=== PATIENT | female | born 1995 | race Caucasian/White ===

== ENCOUNTER 2017-05-15 05:48 | Emergency (ER) | END 2017-05-15 07:43 | disposition home or self-care (01) ==

== ENCOUNTER 2018-02-10 08:16 | Emergency (ER) | END 2018-02-10 10:37 | disposition home or self-care (01) ==

== ENCOUNTER 2018-07-07 00:34 | Outpatient (CLI) | payer BC ==
[~2018-07-07] VITALS: Ht 160 cm; Wt 67.9 kg
[~2018-07-07 00:34] MED LIST: ACET325T33 PO; ACET500C5 PO; CIPR500T4 PO; DICY10CA40 PO; ELEC100080 PO; FOLI20CA PO; PREN1TAB62 PO
[2018-07-07 01:28] VITALS: Ht 160 cm; Wt 67.9 kg
[2018-07-07 01:29] VITALS: BP 107/59; PULSE 74; RESP 18
--- NOTE | 2018-07-07 01:57 | PREOPHP ---
DATE OF ADMISSION: 07/07/2018 HISTORY OF PRESENT ILLNESS: Ms. Darby Calhoun is a 23-year-old 2, para 1, EDC of 09/14 intrauterine at 30 weeks and 1 day gestational age, presented to triage complaining o f lower abdominal pain/pressure radiating to her external genitalia. She denies any headache, nausea , vomiting, shortness of breath or visual changes. Her care is currently with Dr. Zhou . PAST MEDICAL HISTORY: None. MEDICATIONS: vitamins. PAST SURGICAL HISTORY: None. OBSTETRICAL HISTORY: x1 vaginal delivery. GYNECOLOGIC HISTORY: 12, regular 3 to 4 days. Denies any sexually transmitted disease. Sexually ac tive with 1 partner. SOCIAL HISTORY: Denies any smoking, drugs or alcohol. FAMILY HISTORY: None. REVIEW OF SYSTEMS: All within normal except history of present illness. PHYSICAL EXAMINATION: HEENT: Within normal. LUNGS: CTA bilateral. CARDIOVASCULAR: S1, S2. Regular rate, rhythm. ABDOMEN: Gravid, nontender. Negative CVA bilateral. EXTREMITIES: Negative. No calf tenderness. PELVIC: Vaginal: Normal external genitalia. Digital exam deferred. heart tracing category 1 . Tocometer: No contractions. IMPRESSION: Intrauterine at 30 weeks and 1 day gestational age with lower abdominal pain/p ressure, suspected round ligament pain. PLAN: Plan is a biophysical profile, EFW, cervical length, fibronectin. Consider discharge ho me if stable. Dictated By: MEGAN BAUTISTA/NTS Conf#: [id number] DID#: [id number]
--- NOTE | 2018-07-07 03:57 | TRIAGE ---
OB Triage Datetime Report Generated by CPN: 07/07/2018 03:57 Datetime: 07/07/2018 02:52 Pain Assessment Pain Scale: 0 Pain Presence: None/Denies Pain Type: N/A Pain Assessment Comments: Pt able to sleep. Datetime: 07/07/2018 01:13 Time of Arrival: 07/07/2018 00:30 EGA: 30.1 Arrived By: Wheelchair Arrived From: Home Chief Complaint: Abdominal pain/pressure Movement: Present Contractions: Denies/Absent Rupture of Membranes: Denies Vaginal Bleeding: None Vaginal Discharge: Denies Recent Sexual Intercouse: Denies Abdominal Trauma: Not Applicable Patient Complaints: Other Time Provider Notified: 07/07/2018 01:38 Provider Notified: Dr. Edouard Initial Plan: CEFM Datetime: 07/07/2018 01:08 Stage of : OB Triage Assessment Type: Triage Maternal Assessment Level of Consciousness: Fully Conscious DTR's/Clonus: DTRs 2+; No Clonus Headache: Denies Blurred Vision: No Respiratory Effort: Unlabored; Regular Rhythm; Equal Expansion Breath Sounds, Left: Clear and Equal Breath Sounds, Right: Clear and Equal Nausea/Vomiting: Denies RUQ Epigastric Pain: Denies Lower Extremities Edema: None Degree: None Upper Extremities Edema: None Degree: None Facial Edema: None Temperature Route: Oral Fall Risk Assessment History of Falling: (0) No Secondary Diagnosis: (0) No Ambulatory Aid: (0) Bedrest/Nurse Assist IV Therapy: (0) No Gait: (0) Normal/Bedrest/Immobile Mental Status: (0) Oriented to Own Ability Fall Score: 0 Fall Risk Score Definition: No Risk: No action required Pain Assessment Pain Scale: 6 Pain Presence: Constant Pain Type: Pressure Pain Location: Abdomen
== END 2018-07-07 03:50 | disposition home or self-care (01) ==
LOC: OBT 00:34 → L-D 00:34 → OBT 03:50
PROVIDERS: ATTEND Obstetrics & Gynecology
DX: O26.893 Other specified pregnancy related conditions, third trimester (principal); Z3A.30 30 weeks gestation of pregnancy; R10.30 Lower abdominal pain, unspecified
CPT/HCPCS: 76817; 76818; 81001; 82731; Z7500; 81003; G0463

== ENCOUNTER 2018-08-29 18:16 | Outpatient (CLI) | payer BC ==
[~2018-08-29] VITALS: Ht 160 cm; Wt 72.1 kg
[~2018-08-29 18:16] MED LIST changes: -ACET325T33 PO; -ACET500C5 PO; -CIPR500T4 PO; -DICY10CA40 PO; -ELEC100080 PO
[2018-08-29 18:30] VITALS: BP 120/58; PULSE 85; RESP 19; Ht 160 cm; Wt 72.1 kg
[2018-08-29] MEDS ORDERED: LACTATED RINGER'S 1,000 ML IV ONE (21:30)
[2018-08-29] MEDS ORDERED: CEFTRIAXONE 1 GM/50 ML (PMX) 50 ML IVPB ONE (22:00)
[2018-08-29] MEDS ORDERED: SOD CHLORIDE 0.9% 1,000 ML IV SCH (22:30)
--- NOTE | 2018-08-29 23:53 | PN ---
Triage Information Date/Time 347 Reason for visit: Abd/pelvic pain Weeks of Gestation 38w6d /Para Diabetes: none Hypertention: none Additional information blood in the urine Objective Vital Signs Date Temp Pulse Resp B/P (MAP) Pulse Ox O2 O2 Flow FiO2 Time Delivery Rate 08/29/18 98.1 85 19 120/58 Room Air 18:30 (78) Heart Rate: 140's Contractions: >10 Minutes Apart Exam cl/long/igh Results/Medications Results 24 hrs Laboratory Tests Test 08/29/18 18:25 Urine Color YELLOW Urine Clarity SLIGHTLY CLOUDY A Urine pH 6.0 Urine Specific [place] 1.015 Urine Ketones TRACE A Urine Nitrite NEGATIVE Urine Bilirubin NEGATIVE Urine Urobilinogen NEGATIVE Urine Leukocyte Esterase 1+ H Urine Microscopic RBC 1 Urine Microscopic WBC 10 H Urine Squamous Epithelial Cells MODERATE Urine Bacteria FEW A Urine Hemoglobin NEGATIVE Urine Glucose 3+ H Urine Total Protein NEGATIVE Medications Current Medications Sodium Chloride 1,000 ml @ 125 mls/hr Q8H IV Last administered on 08/29/18at 22:33; Admin Dose 125 MLS/HR; Start 08/29/18 at 22:30 Imaging Results BPP 8 DELISA 12 Disposition: Discharge Assessment/Plan A IUP 38w6d pelvic pain UTI P discharge home with cephalexin JENNIFER CONTE MD Aug 29, 2018 23:52
--- NOTE | 2018-08-30 05:42 | TRIAGE ---
OB Triage Datetime Report Generated by CPN: 08/30/2018 05:42 Datetime: 08/29/2018 22:58 Monitor Mode: External Monitor Mode: External US Datetime: 08/29/2018 22:31 Monitor Mode: External Monitor Mode: External US Datetime: 08/29/2018 22:02 Monitor Mode: External Datetime: 08/29/2018 21:57 Vaginal Exam Dilatation (cms): 0.0 Effacement (%): 0 Station: -3 Exam By: azy k RN Membrane Status: Intact Datetime: 08/29/2018 19:23 Stage of : OB Triage Assessment Type: Triage Maternal Assessment Level of Consciousness: Fully Conscious DTR's/Clonus: DTRs 2+; No Clonus Headache: Denies Blurred Vision: No Respiratory Effort: Unlabored; Regular Rhythm; Equal Expansion Breath Sounds, Left: Clear and Equal Breath Sounds, Right: Clear and Equal Nausea/Vomiting: Denies RUQ Epigastric Pain: Denies Facial Edema: None Temperature Route: Oral Fall Risk Assessment History of Falling: (0) No Secondary Diagnosis: (0) No Ambulatory Aid: (0) Bedrest/Nurse Assist IV Therapy: (0) No Gait: (0) Normal/Bedrest/Immobile Mental Status: (0) Oriented to Own Ability Fall Score: 0 Fall Risk Score Definition: No Risk: No action required Pain Assessment Pain Scale: 7 Pain Presence: Constant Pain Type: Ache Pain Location: Other (Annotations: LEFT PELVIS AREA) Pain Assessment Comments: DURING UC'S PT STATES FEELING ABDOMINAL TIGHTNESS. Datetime: 08/29/2018 18:47 Stage of : OB Triage Datetime: 08/29/2018 18:38 Vaginal Exam Dilatation (cms): 0.0 Effacement (%): 0 Station: -3 Exam By: A AAKASH Datetime: 08/29/2018 18:34 Assessment Type: Triage Maternal Assessment Level of Consciousness: Fully Conscious DTR's/Clonus: DTRs 2+; No Clonus Headache: Denies Blurred Vision: No Respiratory Effort: Unlabored; Regular Rhythm; Equal Expansion Breath Sounds, Left: Clear and Equal Breath Sounds, Right: Clear and Equal Nausea/Vomiting: Denies RUQ Epigastric Pain: Denies Lower Extremities Edema: None Degree: None Upper Extremities Edema: None Degree: None Facial Edema: None Fall Risk Assessment History of Falling: (0) No Secondary Diagnosis: (0) No Ambulatory Aid: (0) Bedrest/Nurse Assist IV Therapy: (0) No Gait: (0) Normal/Bedrest/Immobile Mental Status: (0) Oriented to Own Ability Fall Score: 0 Fall Risk Score Definition: No Risk: No action required Datetime: 08/29/2018 18:33 Time of Arrival: 08/29/2018 18:09 EGA: 37.5 Arrived By: Ambulatory Arrived From: Home Chief Complaint: BLOOD IN THE URINE Movement: Present Contractions: Denies/Absent Rupture of Membranes: Denies Vaginal Bleeding: None Vaginal Discharge: Denies Recent Sexual Intercouse: Denies Abdominal Trauma: Not Applicable Patient Complaints: Other Time Provider Notified: 08/29/2018 18:50 Provider Notified: DG Initial Plan: NST Datetime: 07/07/2018 03:37 Labor Evaluation Frequency: x2 Monitor Mode: External Duration (sec)2399: 50-70 Quality: Mild Pattern: Normal: <= 5 Contractions in 10 Minutes Resting Tone [place]: Relaxed Heart Rate FHR Baseline Rate: 130 Monitor Mode: External US Variability: Moderate 6-25 bpm Accelerations: 15X15 Decelerations: None Category: Category I Datetime: 07/07/2018 03:00 Labor Evaluation Frequency: x2 Monitor Mode: External Duration (sec)2399: 70 Quality: Mild Pattern: Normal: <= 5 Contractions in 10 Minutes Resting Tone [place]: Relaxed Heart Rate FHR Baseline Rate: 130 Monitor Mode: External US Variability: Moderate 6-25 bpm Accelerations: 15X15 Decelerations: None Category: Category I Datetime: 07/07/2018 02:00 Labor Evaluation Frequency: x3 Monitor Mode: External Duration (sec)2399: 50-90 Quality: Mild Pattern: Normal: <= 5 Contractions in 10 Minutes Resting Tone [place]: Relaxed Heart Rate FHR Baseline Rate: 130 Monitor Mode: External US Variability: Moderate 6-25 bpm Accelerations: 15X15 Decelerations: None Category: Category I Datetime: 07/07/2018 01:13 EGA: 30.1 Datetime: 07/07/2018 01:08 Fall Score: 0 Fall Risk Score Definition: No Risk: No action required
== END 2018-08-29 23:53 | disposition home or self-care (01) ==
LOC: L-D 18:16 → OBT 18:16
PROVIDERS: ATTEND Obstetrics & Gynecology
DX: O23.43 Unspecified infection of urinary tract in pregnancy, third trimester (principal); O26.893 Other specified pregnancy related conditions, third trimester; R10.2 Pelvic and perineal pain; R31.9 Hematuria, unspecified; Z3A.38 38 weeks gestation of pregnancy
CPT/HCPCS: 36415; 76818; 81001; 87086; 96360; 96365; J0696; J7030; J7120; Z7500; G0463

== ENCOUNTER 2018-09-09 15:07 | Inpatient (IN) | payer BC ==
[~2018-09-09] VITALS: Ht 160 cm; Wt 74.5 kg
[2018-09-09 15:23] VITALS: BMI 29.1
[2018-09-09 15:25] VITALS: BP 117/56; Ht 160 cm; Wt 74.5 kg
--- NOTE | 2018-09-09 17:12 | TRIAGE ---
OB Triage Datetime Report Generated by CPN: 09/09/2018 17:12 Datetime: 09/09/2018 16:15 Labor Evaluation Frequency: irregular Monitor Mode: External Pattern: Normal: <= 5 Contractions in 10 Minutes Resting Tone [place]: Relaxed Heart Rate FHR Baseline Rate: 140 Monitor Mode: External US Variability: Moderate 6-25 bpm Accelerations: 15X15 Decelerations: None Category: Category I Datetime: 09/09/2018 15:33 Stage of : OB Triage Assessment Type: Triage Maternal Assessment Level of Consciousness: Fully Conscious DTR's/Clonus: DTRs 2+; No Clonus Headache: Denies Blurred Vision: No Respiratory Effort: Unlabored; Regular Rhythm; Equal Expansion Breath Sounds, Left: Clear and Equal Breath Sounds, Right: Clear and Equal Nausea/Vomiting: Denies RUQ Epigastric Pain: Denies Facial Edema: None Temperature Route: Oral Fall Risk Assessment History of Falling: (0) No Secondary Diagnosis: (0) No Ambulatory Aid: (0) Bedrest/Nurse Assist IV Therapy: (0) No Gait: (0) Normal/Bedrest/Immobile Mental Status: (0) Oriented to Own Ability Fall Score: 0 Fall Risk Score Definition: No Risk: No action required Monitor Mode: External Monitor Mode: External US Pain Assessment Pain Scale: 0 Pain Presence: None/Denies Pain Type: N/A Datetime: 09/09/2018 15:22 Time of Arrival: 09/09/2018 14:57 EGA: 39.2 Arrived By: Ambulatory Arrived From: Dr. Baez Chief Complaint: SENT FROM [facility] FOR DFM Movement: Decreased Contractions: Occasional Rupture of Membranes: Denies Vaginal Bleeding: None Vaginal Discharge: Denies Recent Sexual Intercouse: Denies Abdominal Trauma: Not Applicable Patient Complaints: Contractions; Other Time Provider Notified: 09/09/2018 17:11 Provider Notified: Dr. Palmer Initial Plan: NST BPP DELISA Datetime: 08/29/2018 23:40 Labor Evaluation Frequency: IRREGULAR Monitor Mode: External Duration (sec)2399: 50-160 Quality: Moderate Pattern: Normal: <= 5 Contractions in 10 Minutes Resting Tone [place]: Relaxed Monitor Mode: External US Comments: FHR -130 Datetime: 08/29/2018 23:00 Labor Evaluation Frequency: 1-6 Monitor Mode: External Duration (sec)2399: 40-100 Quality: Moderate Pattern: Normal: <= 5 Contractions in 10 Minutes Resting Tone [place]: Relaxed Heart Rate FHR Baseline Rate: 135 Monitor Mode: External US Variability: Moderate 6-25 bpm Accelerations: 15X15 Decelerations: None Category: Category I Datetime: 08/29/2018 22:00 Labor Evaluation Frequency: 1.5-7 Monitor Mode: External Duration (sec)2399: 40-150 Quality: Moderate Pattern: Normal: <= 5 Contractions in 10 Minutes Resting Tone [place]: Relaxed Heart Rate FHR Baseline Rate: 125 Monitor Mode: External US Variability: Moderate 6-25 bpm Accelerations: 15X15 Decelerations: None Category: Category I Datetime: 08/29/2018 21:00 Labor Evaluation Frequency: 2-6 Monitor Mode: External Duration (sec)2399: 40-140 Quality: Moderate Pattern: Normal: <= 5 Contractions in 10 Minutes Resting Tone [place]: Relaxed Heart Rate FHR Baseline Rate: 125 Monitor Mode: External US Variability: Moderate 6-25 bpm Accelerations: 15X15 Decelerations: None Category: Category I Datetime: 08/29/2018 20:00 Labor Evaluation Frequency: 2-9 Monitor Mode: External Duration (sec)2399: 40-110 Quality: Moderate Pattern: Normal: <= 5 Contractions in 10 Minutes Resting Tone [place]: Relaxed Heart Rate FHR Baseline Rate: 125 Monitor Mode: External US Variability: Moderate 6-25 bpm Accelerations: 15X15 Decelerations: None Category: Category I Datetime: 08/29/2018 19:23 Fall Score: 0 Fall Risk Score Definition: No Risk: No action required Datetime: 08/29/2018 19:00 Labor Evaluation Frequency: 2-4 Monitor Mode: External Duration (sec)2399: 40-100 Quality: Moderate Pattern: Normal: <= 5 Contractions in 10 Minutes Resting Tone [place]: Relaxed Heart Rate FHR Baseline Rate: 125 Monitor Mode: External US Variability: Moderate 6-25 bpm Accelerations: 15X15 Decelerations: None Category: Category I Datetime: 08/29/2018 18:34 Fall Score: 0 Fall Risk Score Definition: No Risk: No action required Datetime: 08/29/2018 18:33 EGA: 37.5 Datetime: 07/07/2018 01:13 EGA: 30.1 Datetime: 07/07/2018 01:08 Fall Score: 0 Fall Risk Score Definition: No Risk: No action required
[2018-09-09] MEDS ORDERED: AMPICILLIN 2 GM/NS (PMX) 100 ML IV ONE (17:30)
[2018-09-09] MEDS ORDERED: MISOPROSTOL 50 MCG CAPSULE VAG ONE (17:30)
[2018-09-09] MEDS ORDERED: MISOPROSTOL 200 MCG TAB PR PRN (17:30)
[2018-09-09] MEDS ORDERED: CARBOPROST 250 MCG INJ IM PRN (17:30)
[2018-09-09] MEDS ORDERED: OXYTOCIN 30 UNITS/LR 500 ML IV SCH ×2 (17:30)
[2018-09-09] MEDS ORDERED: LIDOCAINE 1% (MPF) 30 ML INJ INJ PRN (17:30)
[2018-09-09] MEDS ORDERED: OXYTOCIN 30 UNITS/LR 500 ML IV PRN (17:30)
[2018-09-09] MEDS ORDERED: METHYLERGONOVINE 0.2 MG INJ IM PRN (17:30)
[2018-09-09] MEDS: LACTATED RINGER'S 1,000 ML IV SCH (18:23)
[2018-09-09] MEDS: MISOPROSTOL 50 MCG CAPSULE PO SCH (19:49)
--- NOTE | 2018-09-09 21:49 | HP ---
Date/Time of Note Date/Time of Note DATE: 09/09/18 TIME: 21:44 OB - History Hx of Present Free Text/Dictation 23 years old -0-0-1 with single intrauterine at 39 weeks and 2 days with ESSENCE of 09/14/2018 complaining of decreased movement.She denies nausea, vomiting, shortness of breath, chest pain, headache, visual changes, vaginal bleeding or LOF. Chief Complaint: Decreased movement Estimated Due Date: Sep 14, 2018 : 2 Para: 1 Spontaneous : 0 Therapeutic : 0 Care: Good Care Ultrasounds: Normal mid trimester US Obstetrical Complications: None Past Family/Social History * Past Medical, Surgical, Family and Obstetric Histories reviewed: Unremarkable. Blood Type: O+ Rubella: immune RPR/VDRL: Negative GBS Status: Positive HBsAG: Negative OB Admission Exam Vital Signs Vital Signs Vital Signs Date Temp Pulse Resp B/P (MAP) Pulse Ox O2 O2 Flow FiO2 Time Delivery Rate 09/09/18 97.5 117/56 15:25 (76) Physical Exam HEENT: WNL Heart: Rhythm Normal Lungs: Clear Abdomen: WNL Extremities: Normal Cervical Dilatation: None Effacement: 0% Station: -3 Membranes: Intact Heart Rate: 130's Accelerations: Accelerations Present Decelerations: No Decelerations Varibility: Moderate Contractions on Admission: None Last 72 hours Lab Results CBC & BMP 09/09/18 18:18 OB Assessment/Plan Other plan: 22 years old 2 para 1-0-0-1 with single intrauterine at 39 weeks and 2 days with decreased movement and oligohydramnios admitted for induction of labor - FHR: No sign of metabolic acidosis- Category I - Continuous EFM, toco - CBC, blood type and screen - US performed: EFW 3694 g, DELISA 6.9 - Analgesia options with R/B/A discussed in detail with patient - Epidural per patient request - Cytotec for induction of labor - Please see the orders - O/Rubella: Immune - GBS: Positive, ampicillin for GBS prophylaxis Admission, procedures, expectations, risks and possible complications have been discussed in detail with the patient. Risk of vaginal delivery including but not limited to bleeding, infection, cervical laceration, placental retention, injury to fetus, blood transfusion, blood transfusion related infection, risk of anesthesia, adhesion, cervical laceration, episiotomy/laceration, possible delivery with risk of bleeding, infection, injury to other organs (bowel, bladder, ureter, vessels, nerves), injury to fetus, blood transfusion, blood transfusion related infection, risk of anesthesia, scar and hernia formation, needs for future , removal of uterus or any other indicated surgery discussed with the patient. She expressed understanding and repeats the risks. All of her questions were answered. She signed the informed consent. PHYSICIAN'S VERIFICATION OF INFORMED CONSENT The patient was counseled regarding the procedure, its indications, risks, potential complications and alternatives and any questions were answered. Consent was obtained. PLANNED PROCEDURE/TREATMENT: Vaginal delivery, episiotomy, repair of laceration possible delivery SHERRY GREEN Sep 09, 2018 21:49
[2018-09-09] MEDS: AMPICILLIN 1 GM/NS (PMX) 50 ML IV SCH (22:20)
[2018-09-10] MEDS ORDERED: BUTORPHANOL 2 MG INJ IV PRN (02:00)
[2018-09-10] MEDS: AMPICILLIN 1 GM/NS (PMX) 50 ML IV SCH ×3 (02:16→09:30)
[2018-09-10] MEDS: LACTATED RINGER'S 1,000 ML IV SCH ×3 (02:42→23:16)
--- NOTE | 2018-09-10 02:42 | PREAC ---
Date/Time of Note Date/Time of Note DATE: 09/10/18 TIME: 02:41 Anesthesia Eval and Record Evaluation Time Pre-Procedure Interview DATE: 09/10/18 TIME: 02:41 Age 23 Sex female NPO: 8 hrs Preoperative diagnosis labor pain Planned procedure epidural Past Medical History Past Medical History: Includes : Gestational age: (39) Surgery & Anesthesia Issues No known issue Meds Anticoagulation: No Beta Lisy within 24 hr: No Reason Beta Lisy not given: Pt. not on B-Lisy Reported Medications Folic Acid (Folic Acid) 20 Mg Capsule, 20 MG PO DAILY 02/09/15 Vit-Iron Fumarate-FA ( Vitamin Tablet) 1 Each Tablet, 1 TAB PO DAILY, TAB 02/09/15 Current Medications Lactated Ringer's 1,000 ml @ 125 mls/hr Q8H IV Last administered on 09/09/18at 18:23; Admin Dose 125 MLS/HR; Start 09/09/18 at 17:21 Ampicillin 50 ml @ 100 mls/hr Q4H IV Last administered on 09/10/18at 02:16; Admin Dose 100 MLS/HR; Start 09/09/18 at 21:30 Lidocaine (Xylocaine 1% (Mpf)) 30 ml ONCE PRN INJ .EPISIOTOMY; Start 09/09/18 at 17:30 Oxytocin/Lactated Ringer's 500 ml @ 500 mls/hr ONCE POST IV ; Start 09/09/18 at 17:30 Oxytocin/Lactated Ringer's 500 ml @ 125 mls/hr POST IV ; Start 09/09/18 at 17:30 Oxytocin/Lactated Ringer's 500 ml @ 0 mls/hr ONCE PRN IV .VAGINAL BLEEDING; Start 09/09/18 at 17:30 Methylergonovine Maleate (Methergine) 0.2 mg ONCE PRN IM .VAGINAL BLEEDING; Start 09/09/18 at 17:30 Carboprost Tromethamine (Hemabate) 250 mcg ONCE PRN IM .VAGINAL BLEEDING; Start 09/09/18 at 17:30 Misoprostol (Cytotec) 1,000 mcg ONCE PRN AK .VAGINAL BLEEDING; Start 09/09/18 at 17:30 Misoprostol (Cytotec 50 Mcg Capsule) 50 mcg Q4 PO Last administered on 09/09/18at 19:49; Admin Dose 50 MCG; Start 09/09/18 at 19:00 Butorphanol Tartrate (Stadol) 2 mg Q3H PRN IV PAIN Last administered on 09/10/18at 02:14; Admin Dose 2 MG; Start 09/10/18 at 02:00 Meds reviewed: Yes Allergies Coded Allergies: No Known Allergy (Unverified , 07/07/18) Allergies Reviewed: Yes Labs/Studies Labs Reviewed: Reviewed by anesthesiologist Result Diagram: 09/09/18 1818 Laboratory Tests 09/09/18 18:18 Blood Bank Test 09/09/18 18:18 Antibody Screen NEGATIVE Blood Type O POSITIVE Rh Immune Globulin Candidate NO test: Positive Studies: ECG (n/a), CXR (n/a) Pre-procedure Exam Last vitals Vital Signs Date Temp Pulse Resp B/P (MAP) Pulse Ox O2 O2 Flow FiO2 Time Delivery Rate 09/09/18 97.5 117/56 15:25 (76) Airway: Adequate mouth opening Mallampati: Mallampati I Teeth: Normal Lung: Normal Heart: Normal ASA Physical Status ASA physical status: 2 Emergency: None Planned Anesthetic Neuraxial: Epidural Pre-operative Attestations Prior to commencing anesthesia and surgery, the patient was re-evaluated, there was verification of: *The patient's identity *The results of appropriate recent lab work and preoperative vital signs *The above evaluation not changing prior to induction *Anesthetic plan, risk benefits, alternative and complications discussed with patient/family; questions answered; patient/family understands, accepts and wishes to proceed. TANJA KIMBLE MD Sep 10, 2018 02:42
[2018-09-10] MEDS ORDERED: FENTAnyl 2MCG/ML-ROPIV 0.2% 100 ML ONE (02:56)
[2018-09-10] MEDS ORDERED: FENTAnyl 2MCG/ML-ROPIV 0.2% 100 ML BAG EPI SCH (04:00)
[2018-09-10] MEDS ORDERED: NALOXONE (0.4 MG/ML) INJ IV PRN (04:00)
[2018-09-10] MEDS: MISOPROSTOL 50 MCG CAPSULE PO SCH ×4 (05:00→09:00)
[2018-09-10] MEDS ORDERED: MINERAL OIL LIGHT 10 ML VIAL TOP ONE (08:00)
[2018-09-10] MEDS ORDERED: IBUPROFEN 600 MG TAB PO PRN (08:30)
[2018-09-10] MEDS ORDERED: OXYTOCIN 30 UNITS/LR 500 ML IV SCH (09:34)
--- NOTE | 2018-09-10 09:34 | LDN ---
Date/Time of Note Date/Time of Note DATE: 09/10/18 TIME: 09:33 Delivery Summary Weeks of Gestation 39 Placenta Delivered: Spontaneously Meconium: none Episiotomy: Yes Laceration repair: rmle repair with 2-0 and 3-0 chromic Anesthesia type: Epidural Estimated blood loss: 200 Sponge & Needle done & correct: Yes All needle counts correct: Yes Any foreign bodies felt in the: No Delivery Information Sex Sex: male Apgars 1 Minute: 9 5 Minute: 9 Suctioning Nose & mouth suctioned at shon: No Delee suction performed: No Umbilical Cord Umbilical cord with: 3 Vessels Cord presentations: nuchal cord Nuchal cord present X: 1 Cord Blood was obtained: Yes MEGAN RUTLEDGE MD Sep 10, 2018 09:34
[2018-09-10] MEDS ORDERED: MISOPROSTOL 200 MCG TAB PR PRN (10:00)
[2018-09-10] MEDS ORDERED: LANOLIN HPA 1 PKT TOP PRN (10:00)
[2018-09-10] MEDS ORDERED: CARBOPROST 250 MCG INJ IM PRN (10:00)
[2018-09-10] MEDS ORDERED: ZOLPIDEM 5 MG TAB PO PRN ×2 (10:00→22:00)
[2018-09-10] MEDS ORDERED: NACL 0.9% 3 ML SYG IV SCH (10:00)
[2018-09-10] MEDS ORDERED: ACETAMINOPHEN 325 MG TAB PO PRN (10:00)
[2018-09-10] MEDS ORDERED: METHYLERGONOVINE 0.2 MG INJ IM PRN (10:00)
[2018-09-10] MEDS ORDERED: WITCH HAZEL/GLYCERIN PAD PR PRN (10:00)
[2018-09-10] MEDS ORDERED: ONDANSETRON 4 MG INJ IV PRN (10:00)
[2018-09-10] MEDS ORDERED: SENNA/DOCUSATE NA (8.6MG/50MG) TAB PO PRN (10:00)
[2018-09-10] MEDS ORDERED: OXYTOCIN 30 UNITS/LR 500 ML IV PRN (10:00)
[2018-09-10] MEDS ORDERED: DIPHENHYDRAMINE 25 MG CAP PO PRN (10:00)
[2018-09-10] MEDS: IBUPROFEN 600 MG TAB PO SCH ×3 (12:00→23:37)
[2018-09-10 15:35] VITALS: BP 124/71; PULSE 69; RESP 18
[2018-09-10 20:00] VITALS: BP 106/65; PULSE 95; RESP 18
[2018-09-10] MEDS ORDERED: LACTATED RINGER'S 1,000 ML IV ONE (22:00)
[2018-09-10] MEDS: SENNA/DOCUSATE NA (8.6MG/50MG) TAB PO SCH (22:58)
[2018-09-10] MEDS: ACET/BUTAL/CAFF TAB PO PRN (23:33)
[2018-09-11 03:41] VITALS: BP 125/60; PULSE 74; RESP 18
[2018-09-11] MEDS: ACET/BUTAL/CAFF TAB PO PRN (03:46)
[2018-09-11] MEDS: IBUPROFEN 600 MG TAB PO SCH ×3 (05:51→17:45)
[2018-09-11 08:00] VITALS: BP 108/56; PULSE 65; RESP 18
--- NOTE | 2018-09-11 08:22 | PAC ---
Date/Time of Note Date/Time of Note DATE: 09/11/18 TIME: 08:22 Post-Anesthesia Notes Post-Anesthesia Note Last documented vital signs Vital Signs Date Temp Pulse Resp B/P (MAP) Pulse Ox O2 O2 Flow FiO2 Time Delivery Rate 09/11/18 98.7 74 18 125/60 98 Room Air 03:41 (81) Activity: WNL Respiratory function: WNL Cardiovascular function: WNL Mental status: Baseline Pain reasonably controlled: Yes Hydration appropriate: Yes Nausea/Vomiting absent: No TANJA KIMBLE MD Sep 11, 2018 08:22
[2018-09-11] MEDS: SENNA/DOCUSATE NA (8.6MG/50MG) TAB PO SCH (09:00)
--- NOTE | 2018-09-11 09:24 | PREAC ---
Date/Time of Note Date/Time of Note DATE: 09/11/18 TIME: :23 Anesthesia Eval and Record Evaluation Time Pre-Procedure Interview DATE: 09/11/18 TIME: 09:23 Age 23 Sex female NPO: 8 hrs Preoperative diagnosis PDPH Planned procedure Epidural blood patch Past Medical History Past Medical History: Includes Neuro: Other (GROSS) Surgery & Anesthesia Issues No known issue Meds Anticoagulation: No Beta Lisy within 24 hr: No Reason Beta Lisy not given: Pt. not on B-Lisy Reported Medications Folic Acid (Folic Acid) 20 Mg Capsule, 20 MG PO DAILY 02/09/15 Vit-Iron Fumarate-FA ( Vitamin Tablet) 1 Each Tablet, 1 TAB PO DAILY, TAB 02/09/15 Current Medications IV Flush (NS 3 ml) 3 ml PER PROTOCOL IV ; Start 09/10/18 at 10:00 Ibuprofen (Motrin) 600 mg Q6 PO Last administered on 09/11/18at 05:51; Admin Dose 600 MG; Start 09/10/18 at 12:00 Diphenhydramine HCl (Benadryl) 25 mg Q6H PRN PO .PRUTITUS; Start 09/10/18 at 10:00 Zolpidem Tartrate (Ambien) 5 mg QHS PRN PO .INSOMNIA; Start 09/10/18 at 10:00 Senna/Docusate Sodium (Senokot-S) 1 tab BID PO Last administered on 09/10/18at 22:58; Admin Dose 1 TAB; Start 09/10/18 at 21:00 Senna/Docusate Sodium (Senokot-S) 1 tab BID PRN PO .CONSTIPATION; Start 09/10/18 at 10:00 Witch Princess/ Glycerin (Tucks Pads) 1 pad BEDSIDE MEDICATION PRN NV .HEMORRHOID/EPISIOTOMY PAIN Last administered on 09/10/18at 17:30; Admin Dose 40 PAD; Start 09/10/18 at 10:00 Lanolin (Lanolin Hpa) 1 applic BEDSIDE MEDICATION PRN TOP .NIPPLES Last administered on 09/10/18at 17:30; Admin Dose 1 APPLIC; Start 09/10/18 at 10:00 Acetaminophen (Tylenol Tab) 650 mg Q4H PRN PO .TEMP Last administered on 09/10/18at 14:11; Admin Dose 650 MG; Start 09/10/18 at 10:00 Oxytocin/Lactated Ringer's 500 ml @ 0 mls/hr ONCE PRN IV .VAGINAL BLEEDING; Start 09/10/18 at 10:00 Methylergonovine Maleate (Methergine) 0.2 mg ONCE PRN IM .VAGINAL BLEEDING; Start 09/10/18 at 10:00 Carboprost Tromethamine (Hemabate) 250 mcg ONCE PRN IM .VAGINAL BLEEDING; Start 09/10/18 at 10:00 Misoprostol (Cytotec) 1,000 mcg ONCE PRN [place] .VAGINAL BLEEDING; Start 09/10/18 at 10:00 Acetaminophen/ Butalbital/ Caffeine (Fioricet) 1 tab Q4H PRN PO PAIN Last administered on 09/11/18at 03:46; Admin Dose 1 TAB; Start 09/10/18 at 22:00 Lactated Ringer's 1,000 ml @ 125 mls/hr Q8H IV Last administered on 09/10/18at 23:16; Admin Dose 125 MLS/HR; Start 09/10/18 at 23:00 Meds reviewed: Yes Allergies Coded Allergies: No Known Allergy (Unverified , 07/07/18) Allergies Reviewed: Yes Labs/Studies Labs Reviewed: Reviewed by anesthesiologist Result Diagram: 09/11/18 0821 Laboratory Tests 09/10/18 19:32 09/11/18 08:21 test: Negative Pre-procedure Exam Last vitals Vital Signs Date Temp Pulse Resp B/P (MAP) Pulse Ox O2 O2 Flow FiO2 Time Delivery Rate 09/11/18 98.7 74 18 125/60 Room Air 03:41 (81) Airway: Adequate mouth opening, Adequate thyromental dist Mallampati: Mallampati II Teeth: Normal Lung: Normal Heart: Normal ASA Physical Status ASA physical status: 2 Emergency: None Planned Anesthetic Neuraxial: Epidural Pre-operative Attestations Prior to commencing anesthesia and surgery, the patient was re-evaluated, there was verification of: *The patient's identity *The results of appropriate recent lab work and preoperative vital signs *The above evaluation not changing prior to induction *Anesthetic plan, risk benefits, alternative and complications discussed with patient/family; questions answered; patient/family understands, accepts and wishes to proceed. WING COLIN Sep 11, 2018 09:24
--- NOTE | 2018-09-11 10:02 | PAC ---
Date/Time of Note Date/Time of Note DATE: 09/11/18 TIME: 10:01 Post-Anesthesia Notes Post-Anesthesia Note Last documented vital signs Vital Signs Date Temp Pulse Resp B/P (MAP) Pulse Ox O2 O2 Flow FiO2 Time Delivery Rate 09/11/18 98.7 74 18 125/60 Room Air 03:41 (81) Activity: WNL Respiratory function: WNL Cardiovascular function: WNL Mental status: Baseline Pain reasonably controlled: Yes Hydration appropriate: Yes Nausea/Vomiting absent: Yes WING COLIN Sep 11, 2018 10:01
[2018-09-11] MEDS: LACTATED RINGER'S 1,000 ML IV SCH ×3 (10:39→23:00)
[2018-09-11 15:47] VITALS: BP 111/59; PULSE 73; RESP 18
[2018-09-11 20:15] VITALS: BP 104/62; PULSE 80; RESP 18
[2018-09-12] MEDS: SENNA/DOCUSATE NA (8.6MG/50MG) TAB PO SCH ×2 (00:08→09:00)
[2018-09-12] MEDS: IBUPROFEN 600 MG TAB PO SCH ×3 (00:08→13:16)
[2018-09-12 04:01] VITALS: BP 105/57; PULSE 69; RESP 18
[2018-09-12 08:00] VITALS: BP 105/58; PULSE 74; RESP 18
--- NOTE | 2018-09-12 10:12 | DS ---
Date/Time of Note Date/Time of Note DATE: 09/12/18 TIME: 10:10 Obstetrical Discharge Record Final Diagnosis Final Diagnosis: Term delivered Vaginal Delivery Obstetrical Delivery: Spontaneous Complications Augmentation: No Induction: No Condition on Discharge Physical Assessment Last Vitals: T=98.5 BP 105/58 Voiding: Yes Breast: Filling Fundus: Firm Calf Tenderness: No Patient Condition: Good MARIELLE NAVAS MD Sep 12, 2018 10:12
--- NOTE | 2018-09-12 15:05 | PD.PPDC ---
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
--- NOTE | 2018-09-13 18:07 | DELSUM ---
Delivery Summary A-C Datetime Report Generated by CPN: 09/13/2018 18:07 DELIVERY PERSONNEL Supervisor Detasseling Crew: Mandi Dobsonebe MATERNAL INFORMATION Delivery Anesthesia: Local; Epidural Medications in Delivery: LR 500ML PITOCIN 30 UNITS Delivery QBL (ml): 300 Placenta Cultured: No Maternal Complications: None LABOR SUMMARY EDC: 09/14/2018 00:00 No. Babies in Womb: 1 Attempted: No Labor Anesthesia: Epidural LABOR INFORMATION Reason for Induction: Not Applicable Onset of Labor: 09/09/2018 20:00 Complete Dilatation: 09/10/2018 07:53 Cervical Ripening Agents: Cytotec @ Oxytocin: N/A Group B Beta Strep: Positive Antibiotics # of Doses: 4 Antibiotics Time of Last Dose: 09/10/2018 06:32 Steroids Given: None Reason Steroids Not Administered: Not Applicable MEMBRANES Membranes Rupture Method: Spontaneous Rupture of Membranes: 09/10/2018 07:22 Length of Rupture (hr): 1.97 Amniotic Fluid Color: Clear Amniotic Fluid Amount: Small Amniotic Fluid Odor: Normal STAGES OF LABOR Stage 1 hr: 11 Stage 1 min: 53 Stage 2 hr: 1 Stage 2 min: 27 Stage 3 hr: 0 Stage 3 min: 1 Total Time in Labor hr: 13 Total Time in Labor min: 21 VAGINAL DELIVERY Episiotomy: Right Mediolateral Laceration Extension: N/A Laceration Type: None Laceration Repair: Not Applicable Initial Vag Sponge Count: 10 Final Vag Sponge Count: 10 Initial Vag Sharps Count: 1 Final Vag Sharps Count: 4 Sponge Count Correct: Yes; Vaginal Sweep Performed Sharps Count Correct: Yes BABY A INFORMATION Delivery Date/Time: 09/10/2018 09:20 Method of Delivery: Vaginal Born in Route : No : N/A Forceps: N/A Vacuum Extraction: N/A Shoulder Dystocia : N/A SHOULDER DYSTOCIA BABY A Delivery Date/Time: 09/10/2018 09:20 PRESENTATION/POSITION BABY A Presentation: Cephalic Cephalic Presentation: Vertex Vertex Position: Left Occipital Anterior Breech Presentation: N/A PLACENTA INFORMATION BABY A Placenta Delivery Time : 09/10/2018 09:21 Placenta Method of Delivery: Spontaneous Placenta Status: Delivered SCORES BABY A Heart Rate 1 min: >100 bpm Resp Effort 1 min: Good Cry Reflex Irritability 1 min: Cough/Sneeze/Pulls Away Muscle Tone 1 min: Active Motion Color 1 min: Body [place], Extremit Blue Resuscitation Effort 1 min: Tactile Stimulation SCORE 1 MIN: 9 Heart Rate 5 min: >100 bpm Resp Effort 5 min: Good Cry Reflex Irritability 5 min: Cough/Sneeze/Pulls Away Muscle Tone 5 min: Active Motion Color 5 min: Body [place], Extremit Blue Resuscitation Effort 5 min: Tactile Stimulation SCORE 5 MIN: 9 INFORMATION BABY A Gestational Age at Delivery: 39.3 Gestational Status: Full Term- 39- 40.6 Weeks Infant Outcome : Liveborn Condition : Stable Infant Sex: Male IDENTIFICATION/MEDS BABY A ID Band Number: [id number] ID Band Location: Right Leg; Left Arm Sensor Applied: Yes Sensor Number: [id number] Sensor Location : Cord Clamp Vitamin K Given : Not Given Erythromycin Given: Not Given WEIGHT/LENGTH BABY A Birthweight (gm): 3550 Weight (lb): 7 Weight (oz): 13 Length (in): 20.00 Infant Length (cm): 50.80 CORD INFORMATION BABY A No. Cord Vessels: 3 Nuchal Cord : Around Neck x1, Loose Nuchal Cord- Other: 0 True Knot: 0 Cord Blood Taken: Yes Banking/Donate Info: NO Infant Suction: Mouth; Nose ASSESSMENT BABY A Infant Complications: Multiple Late Decels; Multiple Variable Decels Physical Findings at Delivery: Within Normal Limits Respirations: Appears Normal Block Saw Operator/ALS Called : No Care By: Russ MARTIN RN Transferred To: Remains with Mother
== END 2018-09-12 18:07 | disposition home or self-care (01) | DRG 806 ==
LOC: OBT 15:07 → L-D 15:08 → OBT 17:20 → PP1 09-10 15:35
PROVIDERS: ADMIT Obstetrics & Gynecology; ATTEND Obstetrics & Gynecology
PROC: 10E0XZZ Delivery of Products of Conception, External Approach (ICD-10-PCS; principal; 2018-09-10)
PROC: 0W8NXZZ Division of Female Perineum, External Approach (ICD-10-PCS; 2018-09-10)
DX: O76 Abnormality in fetal heart rate and rhythm complicating labor and delivery (principal); O41.03X0 Oligohydramnios, third trimester, not applicable or unspecified; Z37.0 Single live birth; O69.81X0 Labor and delivery complicated by cord around neck, without compression, not applicable or unspecified; O99.824 Streptococcus B carrier state complicating childbirth; Z3A.39 39 weeks gestation of pregnancy
CPT/HCPCS: 62322; 76815; 76818; 85014; 85018; 85025; 85610; 85730; 86592; 86850; 86900; 86901; 99464; G0463; J0290; J0595; J2210; J2590; J3010; J7120